=== PATIENT | female | born 1975 | race Caucasian/White ===

== ENCOUNTER 2021-06-09 10:36 | Outpatient (CLI) | payer BC, SELFPAY ==
--- NOTE | ~2021-06-09 | US_ITS ---
EXAMINATION: US pelvic complete w TV DATE: 06/09/2021 12:19 INDICATION: Other specified noninflammatory disorder of uterus. TECHNIQUE: Multiple transabdominal and transvaginal sonographic images of the pelvis were obtained. COMPARISON: None. FINDINGS: TRANSABDOMINAL ULTRASOUND: The uterus measures 5.9 x 2.8 x 3.0 cm. There is no free fluid in the pelvis. TRANSVAGINAL ULTRASOUND: The endometrial complex measures 4 mm in thickness. The right ovary measures 1.8 x 1.2 cm. The left o vary is not visualized. IMPRESSION: 1. Normal uterus and right ovary. Left ovary not visualized. Reviewed, dictated and finalized at location A. E BREEDER
== END 2021-06-09 10:37 | disposition home or self-care (01) ==
PROVIDERS: PCP Internal Medicine; Visit Provider Nurse Practitioner Women's Health
DX: N85.8 Other specified noninflammatory disorders of uterus (principal)
CPT/HCPCS: 76830; 76856

== ENCOUNTER 2021-07-05 10:01 | Outpatient (CLI) | payer BC, SELFPAY ==
--- NOTE | ~2021-07-05 | MM_ITS ---
EXAMINATION: MM screening tina BI w denisha HISTORY: Screening TECHNIQUE: Craniocaudal and mediolateral oblique 3-D tomosynthesis images were obtained and synthetic 2-D images were generated. CAD analysis was submitted and interpreted. COMPARISON: Comparison to multiple prior studies sequentially, with oldest reviewed study dated 01/30. BREAST PARENCHYMAL COMPOSITION: The breasts are almost entirely fatty. FINDINGS: There is no evidence of suspicious mass, calcification, or architectural distortion to sugg est malignancy in either breast. There has been no suspicious interval change. IMPRESSION: 1. No mammographic evidence of malignancy. 2. Recommend routine screening mammography in one year. BI-RADS Category 1: Negative Reviewed, dictated and finalized at location A. AR MAN
== END 2021-07-05 10:02 | disposition home or self-care (01) ==
LOC: ANHIMG 10:02
PROVIDERS: PCP Internal Medicine; Visit Provider Nurse Practitioner Women's Health
DX: Z12.31 Encounter for screening mammogram for malignant neoplasm of breast (principal)
CPT/HCPCS: 77063; 77067

== ENCOUNTER 2022-07-09 13:00 | Emergency (ER) | payer BC, SELFPAY ==
--- NOTE | ~2022-07-09 | XR_ITS ---
EXAMINATION: XR ankle LT min 3V DATE: 07/09/2022 13:31 INDICATION: Left ankle pain after fall TECHNIQUE: Anteroposterior, lateral, mortise, and additional oblique view of the ankle were obtained. COMPARISON: None. FINDINGS: There is diffuse soft tissue swelling of ankle. Bone alignment is normal. There is no ankle fracture. There is an acute, oblique, nondisplaced neck fracture of the fifth metatarsal. A plantar calcaneal enthesophyte is noted. IMPRESSION: 1. Acute nondisplaced neck fracture of the fifth metatarsal. 2. Diffuse ankle soft tissue swelling without evidence of ankle fracture. Reviewed, dictated and finalized at location A. [employer]
[2022-07-09 13:09] VITALS: BP 118/73; PULSE 98; RESP 20; TEMP 36.4; O2SAT 99
--- NOTE | 2022-07-09 13:20 | ED.LOWEXIN ---
HPI - Extremity Injury (Lower) General Chief Complaint: Extremity Injury, Lower Stated Complaint: left ankle pain Time Seen by Provider: 07/09/22 13:14 History of Present Illness HPI Narrative: Patient is a 46 year old female here for evaluation of left ankle pain x 1 day. Patient states she was going down the stairs when her dog ran out from under her, causing her to trip and land with her foot in eversion down one step. States that pain has progressed in severity since. Has attempted ibuprofen without significant relief. Today she has been unable to bear weight. No numbness or tingling in the foot. No head injury in the fall. Related Data Allergies Allergy/AdvReac Type Severity Reaction Status Date / Time No Known Allergies Allergy Verified 07/09/22 14:00 Review of Systems Review of Systems: Gen.: Denies fevers or chills Eyes: Denies eye pain or visual change ENT: Denies congestion Respiratory: Denies shortness of breath or cough CV: Denies chest pain or palpitations GI: Denies abdominal pain nausea, emesis or diarrhea denies burning, urgency, frequency or hematuria Musculoskeletal: Reports ankle pain Neuro: Denies numbness, tingling, weakness or focal weakness Skin: Denies rash Except as documented, all other systems reviewed and negative Exam Narrative: Gen: Alert, oriented, no acute distress Eyes: EOMI, no icterus Pulm: Respirations even and unlabored, symmetric thorax expansion, no audible stridor or visible cyanosis CV: 2+ DP and PT pulses bilaterally. Brisk capillary refill in the toes. GI: No distension, no voluntary/involuntary guarding Neuro: AOx4, moves all extremities without apparent difficulty or weakness, follows commands Skin: No jaundice, no visible bruising, rashes, lesions or wounds on exposed skin MSK: Nonpitting edema to the left ankle noted. Compartments are soft. No obvious deformity noted. Tenderness to palpation along the medial malleolus and the base of the fifth metatarsal on the left. Full range of motion in the foot without pain. Syndesmosis squeeze test negative. No tenderness to palpation of the patella or the hip. Psych: Normal mood/affect, insight/judgement good, adequate fund of knowledge, recent/remote memory intact Course Vital Signs Vital signs: Vital Signs Temperature 97.6 F 07/09/22 13:09 Pulse Rate 98 07/09/22 13:09 Respiratory Rate 20 07/09/22 13:09 Blood Pressure 118/73 07/09/22 13:09 Pulse Oximetry 99 07/09/22 13:09 Oxygen Delivery Room Air 07/09/22 13:09 Temperature 97.6 F 07/09/22 13:09 Pulse Rate 98 07/09/22 13:09 Respiratory Rate 20 07/09/22 13:09 Blood Pressure 118/73 07/09/22 13:09 Pulse Oximetry 99 07/09/22 13:09 Oxygen Delivery Room Air 07/09/22 13:09 MDM - Extremity Injury (Lower) MDM Narrative Medical decision making narrative: 46-year-old female here for evaluation of ankle and foot pain after a fall yesterday, progressing in severity and unable to bear weight today due to pain. Patient has no obvious deformity on exam, has soft tissue swelling to the ankle, tenderness to palpation along the medial malleolus and the base of the fifth metatarsal. Her compartments are soft and she has strong distal pulses. She has evidence of a nondisplaced fracture of the neck of the fifth metatarsal on the left. Patient was placed in a splint, advised NWB and will be set to follow up with orthopedics. Return precautions discussed and she voiced understanding. Discharge Plan Discharge Clinical Impression: Fracture of 5th metatarsal Patient Disposition: Home, Self-Care Condition: Stable Instructions: Antibiotic Form, Foot Fracture in Adults (ED), Splint Care (ED) Additional Instructions: You were found to have a nondisplaced fracture in one of the bones in your foot. You were placed in a splint today, please keep the splint in place until he can see the orthopedist. Refer to the handout on how to take care of the splin
[2022-07-09] MEDS: HYDROcodone/acetaminophen (*CRX) 5-325 MG TABLET 1 TAB PO (14:02)
== END 2022-07-09 14:45 | disposition home or self-care (01) ==
LOC: ANHED 14:10
PROVIDERS: Emergency Provider Physician Assistant; PCP Internal Medicine
DX: S92.355A Nondisplaced fracture of fifth metatarsal bone, left foot, initial encounter for closed fracture (principal); W10.8XXA Fall (on) (from) other stairs and steps, initial encounter
CPT/HCPCS: 29515; 73610; 99284; A9270

== ENCOUNTER 2022-09-05 15:20 | Outpatient (CLI) | payer BC, SELFPAY ==
--- NOTE | ~2022-09-05 | MM_ITS ---
EXAMINATION: MM screening tina BI w denisha HISTORY: Screening mammogram TECHNIQUE: Craniocaudal and mediolateral oblique 3-D tomosynthesis images were obtained and synthetic 2-D images were generated. CAD analysis was submitted and interpreted. COMPARISON: 07/05/2021 bilateral screening mammogram 02/07/2019 bilateral diagnostic mammography and limited left breast ultrasound examination BREAST PARENCHYMAL COMPOSITION: The breasts are almost entirely fatty. FINDINGS: History of prior left breast benign biopsy, with biopsy marker in the anterior outer mid le ft breast. There is no evidence of suspicious mass, calcification, or architectural distortion to sug gest malignancy in either breast. There has been no suspicious interval change. IMPRESSION: 1. No mammographic evidence of malignancy. 2. Recommend routine screening mammography in one year. BI-RADS Category 1: Negative Reviewed, dictated and finalized at location A.
== END 2022-09-05 15:21 | disposition home or self-care (01) ==
LOC: ANHIMG 15:24
PROVIDERS: PCP Internal Medicine; Visit Provider Nurse Practitioner Women's Health
DX: Z12.31 Encounter for screening mammogram for malignant neoplasm of breast (principal)
CPT/HCPCS: 77063; 77067